=== PATIENT | male | born 1950 | race Asian ===

== ENCOUNTER 2016-08-30 23:39 | Emergency (ER) | payer OTHER ==
[2016-08-31 01:16] LABS: Hematocrit 43 % (42-52); Hemoglobin 14.3 g/dl (14.0-18.0); Mean Corpuscular HGB Conc 33 g/dl (31-36); Mean Corpuscular Hemoglobin 29 pg (27-31); Mean Corpuscular Volume 86 fL (80-94); Mean Platelet Volume 9 um3 (7.4-10.4); Red Blood Count 5.01 10^6/ul (4.0-5.4); Red Cell Distribution Width 14 % (10.5-15); White Blood Count 4.8 10^3/ul (3.5-10.8)
[2016-08-31 01:31] LABS: Albumin 4.3 g/dL (3.2-5.2); BUN/Creatinine Ratio 22.4 (8-20); Calcium 9.6 mg/dL (8.6-10.3); EGFR African American 116.7 (>60); EGFR Non-African American 90.7 (>60); Globulin 2.8 g/dL (2-4); Total Bilirubin 0.4 mg/dL (0.2-1.0); Total Protein 7.1 g/dL (6.4-8.9)
[2016-08-31] MEDS ORDERED: hydrOXYzine HCL TAB* 10 MG PO ONE (02:52)
[2016-08-31] MEDS ORDERED: Metoprolol Tartrate TAB* 25 MG PO ONE (02:52)
[2016-08-31 03:07] VITALS: BP 164/78
--- NOTE | 2016-08-31 06:43 | ED ---
Brenna Faye Anna, scribed for Chepe Roberts MD on 08/31/16 at 0113 . Altered Mental Status - HPI Summary HPI Summary: Patient is a 66 y/o male coming to [facility] presenting with elevated BP that began this evening. His family doctor is concerned about the patients blood pressure. His doctor is not local. The patient feels anxious and has some dizziness, but this has since resolved. He denies blurred vision, CP, SOB, lightheadedness, trouble speaking, or trouble walking. The patient took Metoprolol today at 2200 yesterday. He typically takes this medication two times each day. He denies recent stress or diagnosis of anxiety. He does not take medication for anxiety. He reports having a CT two days ago because his brain has a problem. This was done at his doctors office in [facility]. The patient refuses a CT. He requests medicine to help him sleep tonight. He vocalizes understanding that it is his risk if he does not have a CT tonight as is recommended by the ED provider. 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 He understands that he will take the medication twice a day. The patient lives in [facility]. He is visiting [place] for the college graduation. His is traveling here tomorrow. His history is significant for CAD, NIDDM, HLD, and BPH. Patient medications were reviewed this visit. 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 - Allergies/Home Medications Allergies/Adverse Reactions: Allergies Allergy/AdvReac Type Severity Reaction Status Date / Time No Known Allergies Allergy Verified 07/25/15 07:52 PMH/Surg Hx/FS Hx/Imm Hx Endocrine/Hematology History: Reports: Hx Diabetes Cardiovascular History: Reports: Hx Coronary Artery Disease, Hx Hypertension, Hx Myocardial Infarction Denies: Hx Congestive Heart Failure Respiratory History: Denies: Hx Asthma History: Denies: Hx Renal Disease - Surgical History Surgery Procedure, Year, and Place: [place] WITH STENTS PLACED IN 2005 Infectious Disease History: No Infectious Disease History: Denies: Hx Clostridium Difficile, Hx Hepatitis, Hx Human Immunodeficiency Virus (HIV), Hx of Known/Suspected MRSA, Hx Shingles, Hx Tuberculosis, Hx Known/ Suspected VRE, Hx Known/Suspected VRSA, History Other Infectious Disease, Traveled Outside the [place] in Last 30 Days - Family History Known Family History: Positive: Hypertension - Social History Alcohol Use: None Alcohol Amount: pt unable to answer Substance Use Type: Reports: None Smoking Status (MU): Never Smoked Tobacco Review of Systems Negative: Fever, Chills Negative: Erythema Negative: Sore Throat Cardiovascular: Other - elevated blood pressure Negative: Chest Pain Negative: Shortness Of Breath, Cough Negative: Abdominal Pain, Vomiting, Nausea Negative: dysuria, hematuria Negative: Myalgia, Edema Negative: Rash Neurological: Other - Dizziness, now resolved Positive: Anxious All Other Systems Reviewed And Are Negative: Yes Physical Exam - Summary Physical Exam Summary: Constitutional: Well-developed, Well-nourished, Alert. (-) Distressed Skin: Warm, Dry HENT: Normocephalic; Atraumatic Eyes: Conjunctiva normal Neck: Musculoskeletal ROM normal neck. (-) JVD, (-) Stridor, (-) Tracheal deviation Cardio: Rhythm regular, rate normal, Heart sounds normal; Intact distal pulses; The pedal pulses are 2+ and symmetric. Radial pulses are 2+ and symmetric. (-) Murmur Pulmonary/Chest wall: Effort normal. (-) Respiratory distress, (-) Wheezes, (-) Rales Abd: Soft, (-) Tenderness, (-) Distension, (-) Guarding, (-) Rebound Musculoskeletal: (-) Edema Lymph: (-) Cervical adenopathy Neuro: Alert, Oriented x3 Psych: Mood and affect Normal Triage Information Reviewed: Yes Vital Signs On Initial Exam: Initial Vitals Temp Pulse Resp BP Pulse Ox 97.1 F 66 18 185/91 100 08/30/16 23:43 08/30/16 23:43 08/30/16 23:43 08/30/16 23:43 08/30/16 23:43 Vital Signs Reviewed: Yes Diagnostics - Vital Signs Vital Signs Temp Pulse Resp BP Pulse Ox 08/31/16 00:07 97.2 F 61 18 172/64 100 08/30/16 23:43 97.1 F 66 18 185/91 100 - Laboratory Result Diagrams: 08/31/16 01:03 08/31/16 01:03 Lab Statement: Any lab studies that have been ordered have been reviewed, and results considered in the medical decision making process. - EKG 0028 Cardiac Rate: Bradycardia - 58 bpm EKG Rhythm: Sinus Bradycardia ST Segment: Normal Ectopy: None Altered Mental Statu Course/Dx - Course Assessment/Plan: Entire history and physical were performed with a professional certified medical aide. Patient understandings risks of leaving, including disability and . The patient was encouraged to return to the emergency department for any new or changing symptoms. - Diagnoses Discharge Diagnoses: Hypertension, Dizziness Discharge - Discharge Plan Condition: Stable Disposition: HOME Prescriptions: Metoprolol Tartrate TAB* [Lopressor TAB*] 37.5 mg PO BID #90 tab hydrOXYzine HCL TAB* [Atarax 25 MG TAB*] 25 mg PO BEDTIME PRN #14 tab PRN Reason: Insomnia Patient Education Materials: Metoprolol (By mouth), Chronic Hypertension (ED) Print Language: MANDARIN Referrals: Chidi Garcia MD [Primary Care Provider] - Additional Instructions: RETURN TO THE EMERGENCY DEPARTMENT FOR CHANGING OR WORSENING SYMPTOMS. The documentation as recorded by the Brenna germain Anna accurately reflects the service I personally performed and the decisions made by Alejandra flowers Jerry, MD.
== END 2016-08-31 03:05 | disposition home or self-care (01) ==
LOC: ED 23:39
DX: I10 Essential (primary) hypertension (principal); R42 Dizziness and giddiness
CPT/HCPCS: 36415; 80053; 83605; 85025; 93005; 99282; A9270-GY

== ENCOUNTER 2016-08-31 06:54 | Emergency (ER) | payer OTHER ==
[~2016-08-31 06:54] MED LIST: Metoprolol Tartrate TAB* 25 MG PO SCH
[2016-08-31] MEDS ORDERED: Famotidine IV* 10 MG/ML 2 ML (20 mg) IV ONE (07:35)
[2016-08-31] MEDS ORDERED: Ondansetron INJ* 2 MG/ML VIAL IV ONE (07:35)
[2016-08-31 08:03] LABS: Hematocrit 43 % (42-52); Hemoglobin 14.4 g/dl (14.0-18.0); Mean Corpuscular HGB Conc 34 g/dl (31-36); Mean Corpuscular Hemoglobin 29 pg (27-31); Mean Corpuscular Volume 86 fL (80-94); Mean Platelet Volume 9 um3 (7.4-10.4); Red Cell Distribution Width 13 % (10.5-15); White Blood Count 5.4 10^3/ul (3.5-10.8)
[2016-08-31 08:26] LABS: ALT 26 U/L (7-52); AST 14 U/L (13-39); Albumin 4.2 g/dL (3.2-5.2); Alkaline Phosphatase 51 U/L (34-104); Amylase 55 U/L (29-103); Anion Gap 8 mmol/L (2-11); BUN/Creatinine Ratio 21.3 (8-20); Blood Urea Nitrogen 16 mg/dL (6-24); C Reactive Protein < 1.00 mg/L (< 5.00); CO2 Carbon Dioxide 24 mmol/L (22-32); Calcium 9.6 mg/dL (8.6-10.3); Chloride 106 mmol/L (101-111); EGFR African American 134.8 (>60); EGFR Non-African American 104.8 (>60); Globulin 2.8 g/dL (2-4); Glucose 140 mg/dL (70-100); Lipase 27 U/L (11.0-82.0); Potassium 3.9 mmol/L (3.5-5.0); Sodium 138 mmol/L (133-145)
[2016-08-31 08:46] VITALS: BP 141/73
--- NOTE | 2016-08-31 08:53 | RAD ---
INDICATION: Abdominal pain COMPARISON: None TECHNIQUE: Erect and supine views of the abdomen are submitted. FINDINGS: Bones: There are no acute bony findings. Soft tissues: The soft tissues appear normal. The psoas margins are sharp. Bowel gas pattern: Normal Calcifications: There are no abnormal calcifications. Other: None IMPRESSION: NO ACUTE DIAGNOSTIC FINDINGS
[2016-08-31 10:19] LABS: Urine Bilirubin Negative (Negative); Urine Glucose Negative (Negative); Urine Nitrite Negative (Negative)
[2016-08-31] MEDS ORDERED: Metoprolol Tartrate TAB* 25 MG PO ONE (10:42)
--- NOTE | 2016-08-31 11:44 | ED ---
Lester Faye Billy, scribed for Hema Diaz MD on 08/31/16 at 0736 . Abdominal Pain/Male - HPI Summary HPI Summary: The patient is a 66 year-old male coming to [facility] for evaluation of intermittent epigastric pain starting at approximately 0400 today. Pain severity 5/10. He signed out AMA from the ED several hours ago after being seen for hypertensive complaint. At this time, he complains of nausea and vomiting. Denies any chest pain or diarrhea. He reports that several days ago, he had imaging done of his head, although he is unable to tell us who ordered the imaging, where it was done, or for what reason. The patient is generally a poor historian. - History of Current Complaint Chief Complaint: EDHypertension Stated Complaint: HIGH BP Time Seen by Provider: 08/31/16 07:16 Hx Obtained From: Patient Onset/Duration: Gradual Onset Timing: Intermittent, Lasting Hours Severity Initially: Moderate Severity Currently: Moderate Pain Intensity: 5 Pain Scale Used: 0-10 Numeric Location: Epigastric Aggravating Factor(s): Nothing Alleviating Factor(s): Nothing Associated Signs And Symptoms: Positive: Nausea, Vomiting. Negative: Constipation, Diarrhea - Allergies/Home Medications Allergies/Adverse Reactions: Allergies Allergy/AdvReac Type Severity Reaction Status Date / Time No Known Allergies Allergy Verified 08/31/16 07:10 PMH/Surg Hx/FS Hx/Imm Hx Endocrine/Hematology History: Reports: Hx Diabetes Cardiovascular History: Reports: Hx Coronary Artery Disease, Hx Hypertension, Hx Myocardial Infarction Denies: Hx Congestive Heart Failure Respiratory History: Denies: Hx Asthma History: Denies: Hx Renal Disease - Surgical History Surgery Procedure, Year, and Place: [place] WITH STENTS PLACED IN 2005 Infectious Disease History: Unable to Obtain/Confirm Infectious Disease History: Denies: Hx Clostridium Difficile, Hx Hepatitis, Hx Human Immunodeficiency Virus (HIV), Hx of Known/Suspected MRSA, Hx Shingles, Hx Tuberculosis, Hx Known/ Suspected VRE, Hx Known/Suspected VRSA, History Other Infectious Disease, Traveled Outside the [place] in Last 30 Days - Family History Known Family History: Positive: Hypertension - Social History Alcohol Use: None Alcohol Amount: pt unable to answer Substance Use Type: Reports: None Smoking Status (MU): Never Smoked Tobacco Review of Systems Cardiovascular: Other - hypertension Negative: Chest Pain Positive: Abdominal Pain, Vomiting, Nausea. Negative: Diarrhea All Other Systems Reviewed And Are Negative: Yes Physical Exam - Summary Physical Exam Summary: VITAL SIGNS: Reviewed. GENERAL: Patient is a well developed and nourished male who is lying comfortable in the stretcher. Patient is not in any acute respiratory distress. HEAD AND FACE: Normocephalic and atraumatic. EYES: PERRLA, EOMI x 2, No injected conjunctiva. EARS: Hearing grossly intact. Ear canals and tympanic membranes are WNL. MOUTH: Oropharynx within normal limits. NECK: Supple, trachea is midline, no adenopathy, no JVD. CHEST: Symmetric, no tenderness at palpation LUNGS: Clear to auscultation bilaterally. No wheezing or crackles. CVS: RRR,, S1 and S2 present, no murmurs or gallops appreciated. ABDOMEN: Soft, positive epigastric pain. No signs of distention. Positive bowel sounds. No rebound no guarding, and no masses palpated. No abdominal bruit or pulsations. EXTREMITIES: FROM in all major joints, no edema, no cyanosis or clubbing. NEURO: Alert and oriented x 3. No acute neurological deficits. Speech is normal. SKIN: Dry and warm Triage Information Reviewed: Yes Vital Signs On Initial Exam: Initial Vitals Temp Pulse Resp BP Pulse Ox 99.8 F 66 18 158/67 96 08/31/16 06:58 08/31/16 06:58 08/31/16 06:58 08/31/16 06:58 08/31/16 06:58 Vital Signs Reviewed: Yes Diagnostics - Vital Signs Vital Signs Temp Pulse Resp BP Pulse Ox 08/31/16 06:58 99.8 F 66 18 158/67 96 - Laboratory Lab Results: Lab Results 08/31/16 Range/Units 07:49 WBC 5.4 (3.5-10.8) 10^3/ul RBC 5.00 (4.0-5.4) 10^6/ul Hgb 14.4 (14.0-18.0) g/dl Hct 43 (42-52) % MCV 86 (80-94) fL MCH 29 (27-31) pg MCHC 34 (31-36) g/dl RDW 13 (10.5-15) % Plt Count 128 L (150-450) 10^3/ul MPV 9 (7.4-10.4) um3 Neut % (Auto) 71.2 (38-83) % Lymph % (Auto) 22.9 L (25-47) % [place] % (Auto) 4.5 (1-9) % Eos % (Auto) 0.6 (0-6) % Baso % (Auto) 0.8 (0-2) % Absolute Neuts (auto) 3.8 (1.5-7.7) 10^3/ul Absolute Lymphs (auto) 1.2 (1.0-4.8) 10^3/ul Absolute Monos (auto) 0.2 (0-0.8) 10^3/ul Absolute Eos (auto) 0 (0-0.6) 10^3/ul Absolute Basos (auto) 0 (0-0.2) 10^3/ul Absolute Nucleated RBC 0 10^3/ul Nucleated RBC % 0 Result Diagrams: 08/31/16 07:49 08/31/16 07:49 Lab Statement: Any lab studies that have been ordered have been reviewed, and results considered in the medical decision making process. - Radiology Abdominal XR Xray Interpretation: No Acute Changes Radiology Interpretation Completed By: Radiologist - EKG 0757 EKG Interpretation: NSR 60 bpm, no STEMI Re-Evaluation - Re-Evaluation First Eval Re-Evaluation Time: 09:48 Change: Improved Comment: Patient feels better. He does not complain of abdominal pain at this time. Abdominal Pain Fem Course/Dx - Course Assessment/Plan: The patient is a 66 year-old male coming to [facility] for evaluation of intermittent epigastric pain starting at approximately 0400 today. Pain severity 5/10. He signed out AMA from the ED several hours ago after being seen for hypertensive complaint. At this time, he complains of nausea and vomiting. Denies any chest pain or diarrhea. He reports that several days ago, he had imaging done of his head, although he is unable to tell us who ordered the imaging, where it was done, or for what reason. The patient is generally a poor historian. Test results WNL except for glucose 140. UA shows no UTI. Abdominal x-ray shows no acute diagnostic findings. In the ED course, he was given Zofran for nausea and pepcid for the epigastric discomfort. After these medications, the symptoms improved, and he no longer complains of pain and he is ambulating in the ED without any complaints. Therefore he will be discharged home to follow up with his PCP. He requested to be discharged with some metoprolol since he ran out of his medication. He is hemodynamically stable , A&Ox3. - Diagnoses Differential Diagnosis/HQI/PQRI: Constipation, Other - GERD, gastritis Provider Diagnoses: Epigastric pain Discharge - Discharge Plan Condition: Stable Disposition: HOME Patient Education Materials: Epigastric Pain (ED) Print Language: PORTUGUESE Referrals: Chidi Garcia MD [Primary Care Provider] - The documentation as recorded by the Lester germain Billy accurately reflects the service I personally performed and the decisions made by me, Heam Diaz MD.
== END 2016-08-31 12:26 | disposition home or self-care (01) ==
LOC: ED 06:54
DX: R10.13 Epigastric pain (principal); R11.2 Nausea with vomiting, unspecified
CPT/HCPCS: 36415; 74020; 80053; 81003; 82150; 83605; 83690; 83735; 83880; 84484; 85025; 86140; 93005; 96374; 96375; 99282; J2405

== ENCOUNTER 2019-02-17 11:09 | Emergency (ER) | payer OTHER ==
--- NOTE | 2019-02-17 11:29 | ED ---
Skin Complaint - HPI Summary HPI Summary: Patient speaks Mandarin. 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 The patient is a 68 y/o M presenting to [facility] with a chief complaint of diffuse erythematous rash onset about half a month ago with sudden onset and worsening. He reports that the rash began on the chest and abdominal region and continued to spread to the upper and lower extremities. The rash is not pruritic or painful. He denies any fever or bleeding of the gums or mouth. He has used an OTC rash medication to no relief. Symptoms are currently rated 0/10 in severity. No new medication changes. No travel outside of the [place] in the last 30 days. UTD on all vaccines. Takes Plavix. PMHx: [place] with stents, CAD, CHF, HTN, CVA. FHx: HTN. Nonsmoker, no EtOH, no substance use. Medications reviewed. Allergies noted. - History of Current Complaint Chief Complaint: EDRashSkinAbscess Time Seen by Provider: 02/17/19 11:20 Stated Complaint: RASH PER PT Hx Obtained From: Patient Onset/Duration: Started Weeks Ago - half a month, Still Present Skin Exposure Onset/Duration: Weeks Ago Timing: Lasting Weeks Onset Severity: Mild Current Severity: Moderate Pain Intensity: 0 Pain Scale Used: 0-10 Numeric Skin Location: Diffuse, Chest, Arm - BLE, Abdomen, Leg - BLE Character: Redness Aggravating Symptom(s): Nothing Alleviating Symptom(s): Nothing - OTC meds to no relief Associated Signs & Symptoms: Negative - Additional Pertinent History Primary Care Physician: [id number] - Allergy/Home Medications Allergies/Adverse Reactions: Allergies Allergy/AdvReac Type Severity Reaction Status Date / Time No Known Allergies Allergy Verified 02/17/19 11:11 Home Medications: Home Medications Acetaminophen [Acetaminophen Extra Strength] 500 mg PO Q6HR PRN 02/17/19 [ History Confirmed 02/17/19] Donepezil HCL (NF) [Aricept (NF)] 10 mg PO DAILY 02/17/19 [History Confirmed 10/29] Fluticasone Furoate [Arnuity Ellipta] 2 puff INH DAILY 02/17/19 [History Confirmed 02/17/19] Folic Acid TAB* [Folvite TAB*] 1 mg PO DAILY 02/17/19 [History Confirmed ] LoraTADine TAB(NF) [Claritin 10 MG TAB(NF)] 10 mg PO DAILY 02/17/19 [History Confirmed 02/17/19] Metoprolol Tartrate TAB* [Lopressor TAB*] 25 mg PO BID 02/17/19 [History Confirmed 02/17/19] Omeprazole (Nf) [Prilosec (NF)] 40 mg PO DAILY 02/17/19 [History Confirmed 02/17] Promethazine HCl 10 ml PO Q6HR 02/17/19 [History Confirmed 02/17/19] diPHENhydraMINE PO* [Benadryl PO 25 MG TAB*] 25 mg PO BEDTIME PRN 02/17/19 [ History Confirmed 02/17/19] glipiZIDE TAB* [Glucotrol TAB*] 5 mg PO TID 02/17/19 [History Confirmed 02/17/19 ] PMH/Surg Hx/FS Hx/Imm Hx Endocrine/Hematology History: Reports: Hx Diabetes Cardiovascular History: Reports: Hx Coronary Artery Disease, Hx Hypertension, Hx Myocardial Infarction Denies: Hx Congestive Heart Failure Respiratory History: Denies: Hx Asthma History: Denies: Hx Renal Disease Neurological History: Reports: Hx CVA - Surgical History Surgical History: Yes Surgery Procedure, Year, and Place: [place] WITH STENTS PLACED IN 2005 Infectious Disease History: No Infectious Disease History: Denies: Hx Clostridium Difficile, Hx Hepatitis, Hx Human Immunodeficiency Virus (HIV), Hx of Known/Suspected MRSA, Hx Shingles, Hx Tuberculosis, Hx Known/ Suspected VRE, Hx Known/Suspected VRSA, History Other Infectious Disease, Traveled Outside the [place] in Last 30 Days - Family History Known Family History: Positive: Hypertension - Social History Alcohol Use: None Alcohol Amount: pt unable to answer Hx Substance Use: No Substance Use Type: Reports: None Hx Tobacco Use: No Smoking Status (MU): Never Smoked Tobacco Review of Systems Negative: Fever Negative: Other - bleeding of the gums or mouth Positive: Rash - erythematous diffuse on chest, abdomen, arms, legs without pain or itchiness All Other Systems Reviewed And Are Negative: Yes Physical Exam - Summary Physical Exam Summary: Constitutional: Well-developed, Well-nourished, Alert. (-) Distressed Skin: Non-blanching petechial rash to BLE and abdomen, Warm, Dry HENT: Normocephalic; Atraumatic Eyes: Conjunctiva normal Neck: Musculoskeletal ROM normal neck. (-) JVD, (-) Stridor, (-) Nuchal rigidity Cardio: Rhythm regular, rate normal, Heart sounds normal; Intact distal pulses; Radial pulses are 2+ and symmetric. (-) Murmur Pulmonary/Chest wall: Effort normal. (-) Respiratory distress, (-) Wheezes, (-) Rales Abd: Soft, (-) tenderness, (-) Distension, (-) Guarding, (-) Rebound Musculoskeletal: (-) Edema Lymph: (-) Cervical adenopathy Neuro: Alert, Oriented x3 Psych: Mood and affect Normal Triage Information Reviewed: Yes Vital Signs On Initial Exam: Initial Vitals Temp Pulse Resp BP Pulse Ox 97.0 F 70 16 145/74 98 02/17/19 11:11 02/17/19 11:11 02/17/19 11:11 02/17/19 11:11 02/17/19 11:11 Vital Signs Reviewed: Yes Procedures - Sedation Patient Received Moderate/Deep Sedation with Procedure: No Diagnostics - Vital Signs Vital Signs Temp Pulse Resp BP Pulse Ox 02/17/19 11:11 97.0 F 70 16 145/74 98 - Laboratory Result Diagrams: 02/17/19 11:55 02/17/19 11:55 Lab Statement: Any lab studies that have been ordered have been reviewed, and results considered in the medical decision making process. Course/Dx - Course Course Of Treatment: 68-year-old male presents with nonblanching purpuric rash to LE and abdomen. - patient has no other systemic signs, or care with baseline platelet levels, do not suspect ITP. 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 - Diagnoses Provider Diagnoses: Pigmented purpuric dermatosis Discharge ED - Sign-Out/Discharge Documenting (check all that apply): Patient Departure - Patient will be discharged home. - Discharge Plan Condition: Stable Disposition: HOME Patient Education Materials: Purpura (ED) Referrals: Chidi Garcia MD [Retired//Other] - Additional Instructions: You were seen in the emergency department for a rash. This is likely a benign purupic rash. Your labs were normal. If any studies were not completed at the time of discharge you will be called with the relevant results. Please follow up with your primary care doctor in the next 2-3 days and return to the emergency department for fevers, headache, worsening or concerning symptoms. It was a pleasure taking care of you today. - Billing Disposition and Condition Condition: STABLE Disposition: Home - Attestation Statements Document Initiated by Joseph: Yes Documenting Scribe: Mary Grace Herbert Provider For Whom Joseph is Documenting (Include Credential): Dr. Qing Nair MD Scribe Attestation: I, Mary Grace Herbert, scribed for Dr. Qing Nair MD on 02/17/19 at 1303. Scribe Documentation Reviewed: Yes Provider Attestation: The documentation as recorded by the Mary Grace germain accurately reflects the service I personally performed and the decisions made by me, Dr. Qing Nair MD Status of [place] Document: Viewed
[2019-02-17 11:58] LABS: Urine Appearance Clear; Urine Bilirubin Negative (Negative); Urine Blood Negative (Negative); Urine Color Straw; Urine Glucose 2+(150 mg/dL) (Negative); Urine Ketones Negative (Negative); Urine Nitrite Negative (Negative); Urine Protein Negative (Negative); Urine Specific Gravity 1.006 (1.010-1.030); Urine Urobilinogen Negative (Negative)
[2019-02-17 12:11] LABS: ABS Eosinophils 0.2 10^3/ul (0-0.6); ABS Lymphocytes 1.4 10^3/ul (1.0-4.8); ABS Monocytes 0.3 10^3/ul (0-0.8); ABS Neutrophils 1.9 10^3/ul (1.5-7.7); Eosinophil % 6.5 %; Hematocrit 42 % (42-52); Hemoglobin 14.4 g/dL (14.0-18.0); Lymphocyte % 37.3 %; Mean Corpuscular HGB Conc 34 g/dL (31-36); Mean Corpuscular Hemoglobin 30 pg (27-31); Mean Corpuscular Volume 89 fL (80-94); Mean Platelet Volume 8.7 fL (7.4-10.4); Nucleated Red Blood Cells % 0.1; Platelet Count 138 10^3/uL (150-450); Red Blood Count 4.72 10^6 /uL (4.18-5.48); Red Cell Distribution Width 14 % (10-15); White Blood Count 3.9 10^3/uL (3.5-10.8)
[2019-02-17 12:16] LABS: INR 1.09 (0.82-1.09)
[2019-02-17 12:22] LABS: Albumin 4.2 g/dL (3.2-5.2); Albumin/Globulin Ratio 1.4 (1-3); BUN/Creatinine Ratio 22.8 (8-20); Calcium 9.8 mg/dL (8.6-10.3); EGFR African American 99.6 (>60); EGFR Non-African American 82.3 (>60); Potassium 4.5 mmol/L (3.5-5.0); Total Bilirubin 0.6 mg/dL (0.2-1.0); Total Protein 7.2 g/dL (6.4-8.9)
[2019-02-17 12:50] VITALS: BP 129/59
== END 2019-02-17 12:40 | disposition home or self-care (01) ==
LOC: ED 11:09
DX: L81.7 Pigmented purpuric dermatosis (principal); E11.9 Type 2 diabetes mellitus without complications; I25.10 Atherosclerotic heart disease of native coronary artery without angina pectoris; I11.0 Hypertensive heart disease with heart failure; I50.9 Heart failure, unspecified; I25.2 Old myocardial infarction; Z86.73 Personal history of transient ischemic attack (TIA), and cerebral infarction without residual deficits; Z95.5 Presence of coronary angioplasty implant and graft; Z79.899 Other long term (current) drug therapy
CPT/HCPCS: 36415; 80053; 81003; 85025; 85610; 99282